=== PATIENT | female | born 2005 | race Caucasian/White ===

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

== ENCOUNTER → 2024-02-29 09:21 | Outpatient (BNVA) | payer MEDICAID, SELFPAY | PROVIDERS: PCP Nurse Practitioner; Visit Provider Nurse Practitioner | DX: Z78.9 Other specified health status (principal) | CPT/HCPCS: 81025 ==

== ENCOUNTER → 2024-07-03 12:08 | Outpatient (BNVA) | payer MEDICAID, SELFPAY | PROVIDERS: PCP Nurse Practitioner; Visit Provider Nurse Practitioner | DX: Z78.9 Other specified health status (principal) | CPT/HCPCS: 81025; 87491; 87591 ==

== ENCOUNTER → 2024-07-04 10:14 | Outpatient (BNVA) | payer MEDICAID, SELFPAY | PROVIDERS: PCP Nurse Practitioner; Visit Provider Nurse Practitioner | DX: Z30.09 Encounter for other general counseling and advice on contraception (principal) | CPT/HCPCS: 87661 ==

== ENCOUNTER 2024-09-04 22:54 | Emergency (ER) | payer MEDICAID, SELFPAY ==
[2024-09-04 22:56] VITALS: BP 137/82; PULSE 108; RESP 18; TEMP 37.4; O2SAT 97; BMI 41.9
--- NOTE | 2024-09-04 23:01 | W.ED.ALLEREA ---
HPI - Allergic Reaction General: Chief complaint: Allergic Reaction Stated complaint: allergic rxn Time Seen by Provider: 09/04/24 22:57 History of Present Illness: HPI narrative: 19-year-old female with history of asthma not allergy who presents emergency room after she developed allergic reaction at work at [employer]. She became extremely short of breath. EMS was called. She received an updraft and Benadryl and says she is feeling somewhat improved at this point. She still has red cheeks. She still little bit short of breath. She has known allergy but she says she is never had this bad reaction before. Related Data Previous Rx's ?Medication ?Instructions ?Recorded epinephrine 0.3 mg/0.3 mL 0.3 mg (0.3 mL) IM ONCE PRN in 06/30/20 injection, auto-injector case of severe allergic reaction with collapse #2 ea polyethylene glycol 3350 17 34 g PO BID 7 days #476 grams 08/03/22 gram/dose oral powder hydroxyzine HCl 10 mg tablet 5 mg (1/2 x 10 mg) PO TID PRN 02/29/24 anxiety #30 tabs clindamycin HCl 300 mg capsule 300 mg PO BID 7 days #14 caps 06/30/24 hydrocodone 5 mg-acetaminophen 325 1 tab PO Q6H PRN pain 5 days #20 06/30/24 mg tablet tabs escitalopram oxalate 10 mg tablet See Rx Instructions .Route 07/03/24 .COMPLEX #30 tabs norethindrone (contraceptive) 0.35 0.35 mg PO QDAY 30 days #30 tabs 07/03/24 mg tablet prednisone 20 mg tablet 60 mg (3 x 20 mg) PO DAILY 5 days 09/04/24 #15 tabs Allergies Allergy/AdvReac Type Severity Reaction Status Date / Time peanut Allergy Severe ALGY-Difficulty Verified 09/04/24 23:00 Breathing tree nut Allergy Intermediate facial Verified 09/04/24 23:00 swelling blueberry Allergy Unknown Unknown Verified 09/04/24 23:00 Penicillins Allergy unkown Verified 09/04/24 23:00 Review of Systems Narrative: Constitutional symptoms: Negative except as documented in HPI. Skin symptoms: Negative except as documented in HPI. Eye symptoms: Negative except as documented in HPI. ENMT symptoms: Negative except as documented in HPI. Respiratory symptoms: Negative except as documented in HPI. Cardiovascular symptoms: Negative except as documented in HPI. Gastrointestinal symptoms: Negative except as documented in HPI. Genitourinary symptoms: Negative except as documented in HPI. Musculoskeletal symptoms: Negative except as documented in HPI. Neurologic symptoms: Negative except as documented in HPI. Psychiatric symptoms: Negative except as documented in HPI. Endocrine symptoms: Negative except as documented in HPI. PFSH ED PFSH: Surgical History History of orthopedic surgery Family History Other Cancer Social History Smoking and tobacco/nicotine status: never used tobacco/nicotine Second hand smoke exposure: No Alcohol intake: never Substance/Drug Use: never Adopted: No Highest education level completed: 11th Grade Pets and animals: Yes Pets & animals: cat(s) and dog(s) Female Reproductive History: Date of last menstrual period: 08/28/24 Spontaneous abortions: No Physical Exam Narrative: EXAM NARRATIVE: General: Alert, no acute distress. Skin: Warm, dry. Some redness of her cheeks. Head: Normocephalic, atraumatic. Neck: Supple, trachea midline. Eye: Extraocular movements are intact. Ears, nose, mouth and throat: Oral mucosa moist. Cardiovascular: Regular rate and rhythm, Normal peripheral perfusion. Respiratory: some expiratory wheeze, mild increased wob, breath sounds are equal, Symmetrical chest wall expansion. Gastrointestinal: Soft, Nontender, Non distended, Normal bowel sounds. Musculoskeletal: Normal ROM, no deformity. Neurological: Alert and oriented, No focal neurological deficit observed. Psychiatric: Cooperative, appropriate mood & affect. Course Vital Signs: Vital signs: Vital Signs Temperature 99.4 F 09/04/24 22:56 Pulse Rate 100 09/04/24 23:14 Respiratory Rate 20 H 09/04/24 23:14 Blood Pressure 137/82 09/04/24 23:14 Pulse Oximetry 98 09/04/24 23:14 Oxygen Delivery Me thod Room Air 09/04/24 23:14 MDM - Allergic Reaction Medical Decision Making Medical decision making: Differential diagnosis including but not limited to and based on the above HPI, review of systems and physical exam: In a patient with complaints of allergic reaction have concern for anaphylaxis, medication reactions and viral reactions. I reviewed the patient's medical record. Reexamination: Patient has improved considerable. No increased work of breathing. No altered mental status. No focal motor deficits. Assessment and plan: Plexus/allergic reaction ?Received Benadryl already. Solu-Medrol and Pepcid here. - Discharged home - Discussed plan with patient. Answered any questions. - Evaluation and treatment of this problem were appropriate in the emergency setting. No radiology studies performed this visit Discharge Plan Discharge Patient Disposition: Home Clinical Impression: Anaphylaxis Condition: Stable Prescriptions: New prednisone 20 mg tablet 60 mg PO DAILY 5 Days Qty: 15 0RF No Action epinephrine 0.3 mg/0.3 mL auto-injector 0.3 mg IM ONCE PRN (Reason: in case of severe allergic reaction with collapse) Qty: 2 1RF Rx Instructions: While seeking emergency medical attention. May repeat in 5 minutes. polyethylene glycol 3350 17 gram/dose powder 34 g PO BID 7 Days Qty: 476 1RF Rx Instructions: Mix 2 capfuls in 12 oz water 2x daily for 7 days; then 1 capful 2x daily x14 days. hydroxyzine HCl 10 mg tablet 5 mg PO TID PRN (Reason: anxiety) Qty: 30 1RF Rx Instructions: 0.5-1 tab by mouth every 6-8 hours as needed for breakthrough anxiety escitalopram oxalate 10 mg tablet See Rx Instructions .ROUTE .COMPLEX Qty: 30 2RF Dose Instruction: Take 1 tablet by mouth once daily Rx Instructions: Take 1 tablet by mouth once daily norethindrone (contraceptive) 0.35 mg tablet 0.35 mg PO QDAY 30 Days Qty: 30 5RF Rx Instructions: 1 tab by mouth at same time every day; if dose is missed, an hour early or late use alt control clindamycin HCl 300 mg capsule 300 mg PO BID 7 Days Qty: 14 0RF hydrocodone-acetaminophen 5-325 mg tablet 1 tab PO Q6H PRN (Reason: pain) 5 Days Qty: 20 0RF Discharge Orders: Discharge ED (Routine); Ordered 09/04/24 Ordered By: Samantha Blanca Referrals: Antonette Solis FNP-BC [Primary Care Provider] - Discharge Diet: Usual diet Discharge Activity: Increase activity as tolerated Patient Instructions: Anaphylaxis (ED), Opioid Safety, Pain Management Activity Restrictions/Additional Instructions: Thank you for choosing [facility] for your healthcare needs today. Please realize this is an emergency room and that we are providing you with a medical screening exam and this may not be complete and all inclusive of all the testing and or work up that you may need to determine your ailment or severity of your illness. You have been screened and evaluated and felt safe for discharge. Health conditions do change or evolve sometimes and as such it is important that you follow up with your Primary Doctor to be re checked, 3-5 days is a general good time frame for follow up. You are always welcome to return to the ED for re assessment if your symptoms are worsening or you have new concerns Print Language: South Korean Coding Level of Care Code ED Obstetric Assistant for Wilfredo Robledo
[2024-09-04] MEDS: methylPREDNISolone sod succ 125 mg/2 mL INJ IVP (23:11)
[2024-09-04] MEDS: famotidine 20 mg/2 mL INJ 40 MG IVP (23:13)
[2024-09-04 23:14] VITALS: BP 137/82; PULSE 100; RESP 20; O2SAT 98
[2024-09-04 23:30] VITALS: BP 112/74; PULSE 87; RESP 17; O2SAT 98
[2024-09-05 00:06] VITALS: BP 125/75; PULSE 90; RESP 21; O2SAT 97
== END 2024-09-04 23:47 | disposition home or self-care (01) ==
PROVIDERS: Emergency Provider Emergency Medicine; PCP Nurse Practitioner
DX: T78.2XXA Anaphylactic shock, unspecified, initial encounter (principal); X58.XXXA Exposure to other specified factors, initial encounter
CPT/HCPCS: 96374; 96375; 99284; J2919; J3490

== ENCOUNTER 2024-12-12 10:21 | Outpatient (CLI) | payer MEDICAID, SELFPAY ==
[2024-12-12 11:17] LABS: Basophils # 0.1 10^3/uL (0.0-0.1); Basophils % 0.8 %; Eosinophils # 0.1 10^3/uL (0.0-0.8); Eosinophils % 1.6 %; Hematocrit 39.2 % (36-47); Lymphocytes # 3.4 10^3/uL (1.5-6.5); Lymphocytes % 37.5 %; Mean Corpuscular HGB Conc 33.2 g/dL (30-55); Mean Corpuscular Hemoglobin 28.8 pg (27-33); Mean Corpuscular Volume 86.9 fl (85-98); Monocytes # 0.6 10^3/uL (0.2-0.9); Monocytes % 6.9 %; Neutrophils # 4.79 10^3/uL (1.8-8.0); Nucleated Red Blood Cells % 0 %; Platelet Count 379 10^3/cmm (157-399); Red Blood Count 4.51 10^6/uL (3.85-5.65); Red Cell Distribution Width 13.2 % (12.1-15.1); White Blood Count 9.02 10^3/uL (4.5-13.0)
[2024-12-12 11:48] LABS: Alanine Aminotransferase 47 U/L (0-33); Alkaline Phosphatase 75 U/L (35-105); Anion Gap 15.2 (5-19); Aspartate Amino Transferase 31 U/L (0-32); Blood Urea Nitrogen 8 mg/dL (6-20); Calcium 9.2 mg/dL (8.5-10.5); Carbon Dioxide 26 mmol/L (22-29); Chloride 101 mmol/L (98-107); Chol HDL Ratio 4.25 mg/dL (0.0-4.40); Cholesterol 153 mg/dL (0-200); Free T4 Free Thyroxine 0.89 ng/dL (0.82-1.77); Globulin 3.9 g/dL (1.3-4.6); Glomerular Filtration Rate 91.4 mL/min (90-130); Glucose 91 mg/dL (65-115); HDL Cholesterol 36 mg/dL (60-100); LDL Cholesterol Calculated 87 mg/dL (50-129); LDL HDL Ratio 2.42 RATIO (0.00-3.22); Osmolality Calculated 284 mOsm/kg (285-295); Potassium 4.2 mmol/L (3.5-5.1); Sodium 138 mmol/L (136-145); Thyroid Stimulating Hormone 3.01 uIU/mL (0.27-4.20); Total Bilirubin 0.4 mg/dL (0.15-1.2); Total Protein 7.9 g/dL (6.6-8.7); Triglycerides 148 mg/dL (0-150)
[2024-12-12 12:58] LABS: 25 Hydroxy Vitamin D 22 ng/mL (30-100)
== END 2024-12-12 10:22 | disposition home or self-care (01) ==
PROVIDERS: PCP Nurse Practitioner; Visit Provider Nurse Practitioner
DX: Z00.00 Encounter for general adult medical examination without abnormal findings (principal); E55.9 Vitamin D deficiency, unspecified
CPT/HCPCS: 36415; 80053; 80061; 81025; 82306; 84439; 84443; 85025; 87491; 87591; 87661